=== PATIENT | female | born 1970 | race Caucasian/White ===

== ENCOUNTER → 2016-11-07 | Outpatient (CLI) | payer OTHER ==
--- NOTE | 2016-11-07 09:39 | RAD ---
Abdominal ultrasound, 11/07/2016: History: Right upper quadrant pain The gallbladder is within normal limits in size. There is no sonographic evidence of cholelithiasis. The gallbladder foster are not thickened. No bile duct dilatation is seen. The visualized portions of the liver, pancreas, spleen and both kidneys are unremarkable. The abdominal aorta and inferior vena cava are unremarkable. No free fluid is evident in the abdomen. IMPRESSION: No significant abnormality is detected.
== END | disposition home or self-care (01) ==
LOC: US 06:55
PROVIDERS: ATTEND Nurse Practitioner Women's Health
DX: R10.11 Right upper quadrant pain (principal); Z80.3 Family history of malignant neoplasm of breast
CPT/HCPCS: 76700

== ENCOUNTER → 2016-12-07 | Outpatient (CLI) | payer OTHER ==
[2016-12-07 09:02] LABS: ALBUMIN 3.7 g/dL (3.4-5.0); ALBUMIN/GLOBULIN RATIO 0.9 (1.0-1.7); CALCIUM 9.5 mg/dL (8.5-10.1); CREATININE 0.9 mg/dL (0.6-1.0); GFR 67.7; POTASSIUM 3.5 mmol/L (3.5-5.1); TOTAL BILIRUBIN 0.3 mg/dL (0.2-1.0); TOTAL PROTEIN 7.6 g/dL (6.4-8.2)
[2016-12-07 09:06] LABS: CHOLESTEROL/HDL RATIO 2.3
[2016-12-07 09:15] LABS: FREE T4 1.04 ng/dL (0.76-1.46)
== END | disposition home or self-care (01) ==
LOC: LAB 08:04
PROVIDERS: ATTEND Nurse Practitioner Women's Health
DX: I10 Essential (primary) hypertension (principal); E07.9 Disorder of thyroid, unspecified; E55.9 Vitamin D deficiency, unspecified
CPT/HCPCS: 36415; 80053; 80061; 82306; 84439; 84443

== ENCOUNTER → 2018-01-06 | Outpatient (CLI) | payer OTHER ==
[2018-01-06 15:29] LABS: ADD MAN DIFF? NO
[2018-01-06 15:33] LABS: BASO # 0.1 x10^3/uL (0.0-0.2); BASO % 1 % (0-3); EOS # 0.1 x10^3/uL (0.0-0.7); EOS % 1 % (0-3); HEMATOCRIT 32.2 % (36.0-47.0); HEMOGLOBIN 10.1 g/dL (12.0-15.5); LYMPH # 2.7 x10^3/uL (1.0-4.8); LYMPH % 40 % (24-48); MEAN CORPUSCULAR HEMOGLOBIN 23 pg (25-35); MEAN CORPUSCULAR HGB CONC 31 g/dL (31-37); MEAN CORPUSCULAR VOLUME 74 fL (79-100); MONO # 0.4 x10^3/uL (0.0-1.1); MONO % 6 % (0-9); NEUT # 3.5 x10^3uL (1.8-7.7); NEUT % 52 % (31-73); PLATELET COUNT 290 x10^3/uL (140-400); RED BLOOD COUNT 4.36 x10^6/uL (3.50-5.40); RED CELL DISTRIBUTION WIDTH 20.9 % (11.5-14.5); WHITE BLOOD COUNT 6.7 x10^3/uL (4.0-11.0)
[2018-01-06 15:52] LABS: ALK PHOS 91 U/L (46-116); ALT (SGPT) 14 U/L (14-59); ANION GAP 8 (6-14); AST (SGOT) 14 U/L (15-37); BLOOD UREA NITROGEN 16 mg/dL (7-20); BUN/CREATININE RATIO 16 (6-20); CALCIUM 9.6 mg/dL (8.5-10.1); CARBON DIOXIDE 25 mmol/L (21-32); CHLORIDE 105 mmol/L (98-107); GFR 59.7; GLUCOSE 109 mg/dL (70-99); POTASSIUM 4.3 mmol/L (3.5-5.1); SODIUM 138 mmol/L (136-145); TOTAL BILIRUBIN 0.4 mg/dL (0.2-1.0); TOTAL PROTEIN 8.2 g/dL (6.4-8.2)
[2018-01-06 16:31] LABS: ANISOCYTOSIS SLIGHT; OVALOCYTES OCC; PLT ESTIMATE ADEQUATE (ADEQUATE); POLYCHROMASIA SLIGHT
[2018-01-09 11:58] LABS: MRSA BY PCR Negative (Negative)
== END | disposition home or self-care (01) ==
LOC: SURGPAT 13:19
DX: Z01.818 Encounter for other preprocedural examination (principal); I10 Essential (primary) hypertension
CPT/HCPCS: 36415; 80053; 85025; 93005

== ENCOUNTER 2018-01-10 06:58 | Day surgery (SDC) | payer OTHER ==
[2018-01-10] MEDS ORDERED: ONDANSETRON PF 4 MG/2 ML VIAL. IV (07:00)
[2018-01-10] MEDS ORDERED: fentaNYL PF VIAL 100 MCG/2 ML VIAL IV ×2 (07:00)
[2018-01-10] MEDS ORDERED: PROCHLORPERAZINE 10 MG/2 ML VIAL. IV (07:00)
[2018-01-10] MEDS ORDERED: LIDOCAINE 1% PF 2 ML VIAL. ID (07:00)
[2018-01-10] MEDS ORDERED: MORPHINE SULFATE 2 MG/ML DISP.SYRIN. IV (07:00)
[2018-01-10] MEDS: IV RINGERS,LACTATED 1000ML 1,000 ML IV (07:36)
[2018-01-10] MEDS ORDERED: MIDAZOLAM HCL/PF 2 MG/2 ML VIAL. (08:14)
[2018-01-10] MEDS ORDERED: ROCURONIUM 50 MG/5 ML VIAL. (08:14)
[2018-01-10] MEDS ORDERED: GLYCOPYRROLATE 1 MG/5 ML VIAL. (08:14)
[2018-01-10] MEDS ORDERED: REMIFENTANIL 2 MG VIAL. IV (08:14)
[2018-01-10] MEDS ORDERED: PROPOFOL 50 ML IV ×2 (08:15→09:28)
[2018-01-10] MEDS ORDERED: DEXAMETHASONE SOD PHOS 20 MG/5 ML VIAL. (08:15)
[2018-01-10] MEDS ORDERED: PROPOFOL 20 ML IV (08:15)
[2018-01-10] MEDS ORDERED: PHENYLEPHRINE 10 MG/ML VIAL. ×2 (08:15)
[2018-01-10] MEDS ORDERED: ONDANSETRON PF 4 MG/2 ML VIAL. (08:15)
[2018-01-10] MEDS ORDERED: DESFLURANE > 120 MINUTES IH (08:15)
[2018-01-10] MEDS ORDERED: SCOPOLAMINE 1.5MG PATCH. TD (08:32)
[2018-01-10] MEDS: SCOPOLAMINE 1.5MG PATCH. TD ×2 (08:35→09:00)
[2018-01-10] MEDS ORDERED: KETOROLAC 30 MG/ML INJ FOR OR. INJ (08:57)
[2018-01-10] MEDS: VANCOMYCIN 1GM IVPB FOR OMNI 250 ML IV (09:04)
[2018-01-10] MEDS: KETOROLAC 60 MG/2 ML INJ FOR OR. (09:24)
[2018-01-10] MEDS: THROMBIN TOPICAL 20,000 UNIT SPRAY.SYRN KIT TP (09:24)
[2018-01-10] MEDS: BACITRACIN 50,000 UNIT in IV NORMAL SALINE 1000ML BAG 1,000 ML IRR (09:24)
[2018-01-10] MEDS: BUPIVAC MPF-EPI 0.5%-1:200000 30 ML VIAL. INJ (09:24)
[2018-01-10] MEDS: GELATIN SPONGE SIZE 100. (09:24)
[2018-01-10] MEDS: HYDROcodone/APAP 5/325MG 1 TAB TABLET PO (11:39)
== END 2018-01-10 12:40 | disposition home or self-care (01) ==
LOC: SURG 06:58
DX: M51.17 Intervertebral disc disorders with radiculopathy, lumbosacral region (principal)
CPT/HCPCS: 63030; 76000; 97161-GP; G8978-CJ-GP; G8979-CJ-GP; G8980-CJ-GP; J1100; J1885; J2250; J2405; J2704; J3370; J3490; J7030

== ENCOUNTER → 2018-07-11 | Day surgery (SDC) | payer OTHER ==
[~2018-07-11] MED LIST: ACET500T68 PO; ATOR20TA58 PO; BYSTOLIC5 MG PO; DOCU-109 PO; FERR325T14 PO; GABA-586 PO; GLUC100018 PO; HYDR-971 PO; HYDROmorphone 2 MG/ML VIAL IV PRN; IV RINGERS,LACTATED 1000ML 1,000 ML IV SCH; LIDOCAINE 1% PF 2 ML VIAL. ID PRN; LIDOCAINE 1% PF 2 ML VIAL. ONE; METF10007 PO; METH-38 PO; MORPHINE SULFATE 2 MG/ML VIAL. IV PRN; NAPR-514 PO; NIAC1000 PO; ONDANSETRON PF 4 MG/2 ML VIAL. IV PRN; PHEN37.5 PO; PROCHLORPERAZINE 10 MG/2 ML VIAL. IV PRN; PROPOFOL 20 ML IV ONE; THYR30TA PO; TOPI50TA8 PO; TRAM50TA PO; fentaNYL PF VIAL 100 MCG/2 ML VIAL IV PRN
[2018-07-11 08:03] VITALS: BP 119/62
== END | disposition home or self-care (01) ==
LOC: ENDOS 06:01
PROVIDERS: ATTEND Internal Medicine Gastroenterology
DX: K64.0 First degree hemorrhoids (principal); F41.9 Anxiety disorder, unspecified; K21.9 Gastro-esophageal reflux disease without esophagitis; I10 Essential (primary) hypertension; E03.9 Hypothyroidism, unspecified; E78.00 Pure hypercholesterolemia, unspecified; Z88.0 Allergy status to penicillin; Z88.1 Allergy status to other antibiotic agents; D64.9 Anemia, unspecified; M19.90 Unspecified osteoarthritis, unspecified site; Z80.3 Family history of malignant neoplasm of breast; Z83.71 Family history of colonic polyps; Z80.0 Family history of malignant neoplasm of digestive organs; Z82.49 Family history of ischemic heart disease and other diseases of the circulatory system; Z83.3 Family history of diabetes mellitus; Z79.899 Other long term (current) drug therapy; Z79.84 Long term (current) use of oral hypoglycemic drugs; Z90.710 Acquired absence of both cervix and uterus; Z98.890 Other specified postprocedural states; Z96.698 Presence of other orthopedic joint implants
CPT/HCPCS: 45378; J2704

== ENCOUNTER → 2019-04-21 | Outpatient (CLI) | payer OTHER ==
[2019-04-06 14:20] VITALS: BP 108/63
[~2019-04-21] MED LIST changes: +ALPR0.5T6 PO; +BUPR300T4 PO; +CARV6.2511 PO; -GABA-586 PO; +GABA300C18 PO; +HYDR-3164 PO; -HYDR-971 PO; -HYDROmorphone 2 MG/ML VIAL IV PRN; -IV RINGERS,LACTATED 1000ML 1,000 ML IV SCH; +LEFLUNOMIDE20 MG PO; -LIDOCAINE 1% PF 2 ML VIAL. ID PRN; -LIDOCAINE 1% PF 2 ML VIAL. ONE; +META-21 PO; -MORPHINE SULFATE 2 MG/ML VIAL. IV PRN; +OMEG1CAP38 PO; +OMEP40CA5 PO; -ONDANSETRON PF 4 MG/2 ML VIAL. IV PRN; -PROCHLORPERAZINE 10 MG/2 ML VIAL. IV PRN; -PROPOFOL 20 ML IV ONE; +TOPI25TA52 PO; -fentaNYL PF VIAL 100 MCG/2 ML VIAL IV PRN
[2019-04-21 15:06] LABS: BASO # 0.1 x10^3/uL (0.0-0.2); BASO % 1 % (0-3); EOS # 0.1 x10^3/uL (0.0-0.7); EOS % 2 % (0-3); HEMATOCRIT 34.6 % (36.0-47.0); HEMOGLOBIN 11.4 g/dL (12.0-15.5); LYMPH # 2.4 x10^3/uL (1.0-4.8); LYMPH % 39 % (24-48); MEAN CORPUSCULAR HEMOGLOBIN 28 pg (25-35); MEAN CORPUSCULAR HGB CONC 33 g/dL (31-37); MEAN CORPUSCULAR VOLUME 85 fL (79-100); MONO # 0.4 x10^3/uL (0.0-1.1); MONO % 7 % (0-9); NEUT # 3.1 x10^3/uL (1.8-7.7); NEUT % 51 % (31-73); PLATELET COUNT 256 x10^3/uL (140-400); RED BLOOD COUNT 4.08 x10^6/uL (3.50-5.40); RED CELL DISTRIBUTION WIDTH 15.7 % (11.5-14.5); WHITE BLOOD COUNT 6.2 x10^3/uL (4.0-11.0)
== END | disposition home or self-care (01) ==
LOC: LAB 14:49
PROVIDERS: ATTEND Internal Medicine Hematology & Oncology
DX: D64.9 Anemia, unspecified (principal)
CPT/HCPCS: 36415; 82607; 82728; 82746; 83540; 83550; 85025; 85045

== ENCOUNTER → 2019-05-05 | Outpatient (CLI) | payer OTHER ==
[2019-04-06 14:20] VITALS: BP 108/63
[2019-05-05 12:10] LABS: BASO # 0.1 x10^3/uL (0.0-0.2); BASO % 1 % (0-3); EOS # 0.1 x10^3/uL (0.0-0.7); EOS % 2 % (0-3); HEMATOCRIT 33.7 % (36.0-47.0); HEMOGLOBIN 11.2 g/dL (12.0-15.5); LYMPH % 28 % (24-48); MEAN CORPUSCULAR HEMOGLOBIN 28 pg (25-35); MEAN CORPUSCULAR HGB CONC 33 g/dL (31-37); MEAN CORPUSCULAR VOLUME 85 fL (79-100); MONO # 0.5 x10^3/uL (0.0-1.1); MONO % 7 % (0-9); NEUT # 4.3 x10^3/uL (1.8-7.7); NEUT % 62 % (31-73); PLATELET COUNT 241 x10^3/uL (140-400); RED BLOOD COUNT 3.95 x10^6/uL (3.50-5.40); RED CELL DISTRIBUTION WIDTH 15.1 % (11.5-14.5); WHITE BLOOD COUNT 6.9 x10^3/uL (4.0-11.0)
[2019-05-05 12:35] LABS: ALBUMIN 3.5 g/dL (3.4-5.0); ALBUMIN/GLOBULIN RATIO 0.8 (1.0-1.7); GFR 48.2; POTASSIUM 4.1 mmol/L (3.5-5.1); SODIUM 141 mmol/L (136-145); TOTAL BILIRUBIN 0.5 mg/dL (0.2-1.0); TOTAL PROTEIN 7.7 g/dL (6.4-8.2)
--- NOTE | 2019-05-05 12:43 | RAD ---
EXAM: Right shoulder, 3 views; cervical spine, 2 views. HISTORY: Pain. COMPARISON: None. FINDINGS: Right shoulder: 3 views of the right shoulder obtained. There is no fracture, dislocation or subluxation. Cervical spine: 2 views of the cervical spine are obtained. There is degenerative endplate remodeling with disc space narrowing at C5-C6, and to lesser extent, C6-C7. No fracture is seen. There is no significant listhesis. IMPRESSION: 1. Degenerative change involving the cervical spine, primarily at C5-C6 and C6-C7. 2. No acute osseous finding. Electronically signed by: Hellen Barber MD (05/05/2019 12:40 PM) [email or web address]
[2019-05-05 12:48] LABS: ALK PHOS 91 U/L (46-116); ALT (SGPT) 7 U/L (14-59); ANION GAP 10 (6-14); AST (SGOT) 11 U/L (15-37); BLOOD UREA NITROGEN 24 mg/dL (7-20); BUN/CREATININE RATIO 20 (6-20); CARBON DIOXIDE 24 mmol/L (21-32); CHLORIDE 107 mmol/L (98-107); CREATININE 1.2 mg/dL (0.6-1.0); GLUCOSE 90 mg/dL (70-99)
[2019-05-05 12:52] LABS: C-REACTIVE PROTEIN < 0.5 mg/L (0-3.3)
== END | disposition home or self-care (01) ==
LOC: RAD 11:47
PROVIDERS: ATTEND Internal Medicine Rheumatology
DX: M47.812 Spondylosis without myelopathy or radiculopathy, cervical region (principal); M48.02 Spinal stenosis, cervical region; M06.9 Rheumatoid arthritis, unspecified; M25.511 Pain in right shoulder; Z79.899 Other long term (current) drug therapy
CPT/HCPCS: 36415; 72040; 73030; 80053; 85025; 85651; 86140

== ENCOUNTER → 2019-05-26 | Day surgery (SDC) | payer OTHER ==
[~2019-05-26] MED LIST changes: +IV RINGERS,LACTATED 1000ML 1,000 ML IV SCH; +LEFL10TA13 PO; -LEFLUNOMIDE20 MG PO; +LIDOCAINE 2% PF 5 ML VIAL. ONE; +PROPOFOL 20 ML IV ONE
[2019-05-26 16:31] VITALS: BP 113/64
== END | disposition home or self-care (01) ==
LOC: ENDOS 14:47
PROVIDERS: ATTEND Internal Medicine Gastroenterology
DX: K29.50 Unspecified chronic gastritis without bleeding (principal); D50.9 Iron deficiency anemia, unspecified; K31.89 Other diseases of stomach and duodenum; K21.9 Gastro-esophageal reflux disease without esophagitis; I10 Essential (primary) hypertension; E78.5 Hyperlipidemia, unspecified; F41.9 Anxiety disorder, unspecified; M19.90 Unspecified osteoarthritis, unspecified site; E78.00 Pure hypercholesterolemia, unspecified; Z80.3 Family history of malignant neoplasm of breast; Z83.3 Family history of diabetes mellitus; Z90.710 Acquired absence of both cervix and uterus; Z88.0 Allergy status to penicillin; Z88.8 Allergy status to other drugs, medicaments and biological substances; Z83.71 Family history of colonic polyps; Z80.0 Family history of malignant neoplasm of digestive organs; Z79.84 Long term (current) use of oral hypoglycemic drugs; Z79.899 Other long term (current) drug therapy
CPT/HCPCS: 43235; J2001; J2704

== ENCOUNTER → 2019-06-09 | Outpatient (CLI) | payer OTHER ==
[2019-05-26 16:31] VITALS: BP 113/64
[~2019-06-09] MED LIST changes: +BARIUM SULFATE 60% 355 ML SUSP PO ONE; -IV RINGERS,LACTATED 1000ML 1,000 ML IV SCH; -LIDOCAINE 2% PF 5 ML VIAL. ONE; -PROPOFOL 20 ML IV ONE
--- NOTE | 2019-06-09 16:26 | RAD ---
Examination: SMALL BOWEL SERIES History: Anemia Comparison/Correlation: None Findings: Small bowel series exam was performed utilizing 0.6 minutes of fluoroscopy. 8 fluoroscopic images were obtained. Hemmer Chainstitch view demonstrates left hip joint prosthesis. Bowel gas pattern is unremarkable. Oral contrast was administered. Stomach distends normally with contrast. Contrast reaches the cecum by 40 minutes. No suspicious filling defects identified. Terminal ileum is grossly unremarkable. No strictures identified. Impression: Normal small bowel series exam. Electronically signed by: Jay Ballard MD (06/09/2019 4:23 PM) [facility]
== END | disposition home or self-care (01) ==
LOC: RAD 07:48
PROVIDERS: ATTEND Internal Medicine Gastroenterology
DX: D64.9 Anemia, unspecified (principal)
CPT/HCPCS: 74250

== ENCOUNTER → 2019-06-17 | Outpatient (CLI) | payer OTHER ==
[2019-05-26 16:31] VITALS: BP 113/64
[~2019-06-17] MED LIST changes: -BARIUM SULFATE 60% 355 ML SUSP PO ONE; +OMEP40CA45 PO; -OMEP40CA5 PO
[2019-06-17 17:05] LABS: BASO # 0.1 x10^3/uL (0.0-0.2); BASO % 1 % (0-3); EOS # 0.1 x10^3/uL (0.0-0.7); EOS % 2 % (0-3); HEMATOCRIT 36.3 % (36.0-47.0); HEMOGLOBIN 11.9 g/dL (12.0-15.5); LYMPH # 2.5 x10^3/uL (1.0-4.8); LYMPH % 36 % (24-48); MEAN CORPUSCULAR HEMOGLOBIN 30 pg (25-35); MEAN CORPUSCULAR HGB CONC 33 g/dL (31-37); MEAN CORPUSCULAR VOLUME 90 fL (79-100); MONO # 0.6 x10^3/uL (0.0-1.1); MONO % 9 % (0-9); NEUT # 3.7 x10^3/uL (1.8-7.7); NEUT % 53 % (31-73); PLATELET COUNT 227 x10^3/uL (140-400); RED BLOOD COUNT 4.02 x10^6/uL (3.50-5.40); RED CELL DISTRIBUTION WIDTH 15.4 % (11.5-14.5); WHITE BLOOD COUNT 7.1 x10^3/uL (4.0-11.0)
== END | disposition home or self-care (01) ==
LOC: LAB 16:47
PROVIDERS: ATTEND Internal Medicine Gastroenterology
DX: D64.9 Anemia, unspecified (principal)
CPT/HCPCS: 36415; 85025

== ENCOUNTER → 2019-09-23 | Outpatient (CLI) | payer OTHER ==
[2019-05-26 16:31] VITALS: BP 113/64
[~2019-09-23] MED LIST changes: -BUPR300T4 PO; +BUPR300T92 PO
[2019-09-23 17:11] LABS: BASO # 0.1 x10^3/uL (0.0-0.2); BASO % 1 % (0-3); EOS # 0.2 x10^3/uL (0.0-0.7); EOS % 3 % (0-3); HEMATOCRIT 37.9 % (36.0-47.0); HEMOGLOBIN 12.5 g/dL (12.0-15.5); LYMPH # 2.5 x10^3/uL (1.0-4.8); LYMPH % 45 % (24-48); MEAN CORPUSCULAR HEMOGLOBIN 30 pg (25-35); MEAN CORPUSCULAR HGB CONC 33 g/dL (31-37); MEAN CORPUSCULAR VOLUME 91 fL (79-100); MONO # 0.4 x10^3/uL (0.0-1.1); MONO % 8 % (0-9); NEUT # 2.4 x10^3/uL (1.8-7.7); NEUT % 43 % (31-73); PLATELET COUNT 237 x10^3/uL (140-400); RED BLOOD COUNT 4.16 x10^6/uL (3.50-5.40); RED CELL DISTRIBUTION WIDTH 13.2 % (11.5-14.5); WHITE BLOOD COUNT 5.5 x10^3/uL (4.0-11.0)
== END | disposition home or self-care (01) ==
LOC: LAB 16:49
PROVIDERS: ATTEND Internal Medicine Hematology & Oncology
DX: D50.9 Iron deficiency anemia, unspecified (principal)
CPT/HCPCS: 36415; 82607; 82728; 82746; 83540; 83550; 85025

== ENCOUNTER → 2021-01-26 | Outpatient (CLI) | payer OTHER ==
[2019-05-26 16:31] VITALS: BP 113/64
--- NOTE | 2021-01-26 09:29 | KCIC ---
MRI STUDY OF THE RIGHT KNEE WITHOUT CONTRAST INDICATIONS: Right knee pain. History of right knee pain after hearing and feeling a pop posteriorly in December 2020. TECHNIQUE: Noncontrast MRI sequences of the right knee were performed. FINDINGS: The anterior and posterior cruciate ligaments are intact. The quadriceps and patellar tendo ns are intact. There is an oblique tear of the posterior horn of the medial meniscus which extends to the superior and inferior articular surfaces. The resultant defect measures 3 mm transversely. No ar ticular surface tear of the lateral meniscus is seen. There is articular cartilage signal change of t he medial and lateral tibiofemoral joint compartments consistent with mild chondromalacia but no sign ificant articular cartilage defect is seen. There is mild degenerative spurring of the medial tibiofe moral joint compartment and mild to moderate degenerative spurring of the lateral tibiofemoral joint compartment. The patella is normally aligned. There is severe chondromalacia patellae and trochlear c hondromalacia with complete loss of articular cartilage of the lateral patellofemoral joint compartme nt resulting in [id number] interface here. There is moderate degenerative spurring of this joint co mpartment. The medial and lateral retinacular ligaments are intact. The medial collateral ligament is intact. There is edema around this ligament. No meniscocapsular separation is seen. The lateral shu ateral ligament complex and iliotibial band and popliteus tendon are intact. No posterior lateral cor ner injury is seen. There is a periarticular ganglion cyst seen just superior to the posterior joint capsule posterior to the distal femoral metaphysis which measures 16 mm. There is a complex ganglion cyst seen along the posterior edge of the popliteus muscle extending medially towards the pes anserin us bursa. There is a degenerative cyst below the tibial spines. There is a degenerative cyst involvin g the posterior lateral aspect of the medial tibial plateau and small degenerative cyst of the anteri or aspect of the medial tibial plateau. No marrow infiltrative process or fracture or stress reaction bone marrow edema is seen. There is a small knee joint effusion. No loose body is evident. No disten ded Lozano's cyst is evident. No muscle edema is seen. IMPRESSION: Tear of the posterior horn of the medial meniscus. Severe chondromalacia patellae and trochlear chondromalacia with [id number] interface involving the lateral patellofemoral joint compartment. Mild primary degenerative osteoarthritis and mild chondromalacia of the medial and lateral tibiofemor al joint compartments without significant articular cartilage defect. Edema around the medial collateral ligament which may represent a grade 1 ligament sprain if there is a history of recent trauma. Otherwise, this finding may represent edema due to chronic overuse/enthe sopathy. Periarticular ganglion cysts. Electronically signed by: Jj Molina MD (01/26/2021 9:26 AM) [id number]
== END ==
LOC: KCIC MRI 08:00
PROVIDERS: ATTEND Physician Assistant
DX: S83.241A Other tear of medial meniscus, current injury, right knee, initial encounter (principal); M17.11 Unilateral primary osteoarthritis, right knee; X58.XXXA Exposure to other specified factors, initial encounter; Y93.89 Activity, other specified; Y92.89 Other specified places as the place of occurrence of the external cause; Y99.8 Other external cause status
CPT/HCPCS: 73721

== ENCOUNTER 2021-02-21 10:27 | Day surgery (SDC) | payer OTHER ==
[~2021-02-21] VITALS: Ht 165.1 cm; Wt 106.0 kg
[2021-02-21 10:20] VITALS: BP 140/67
[~2021-02-21 10:27] MED LIST changes: +BUPR150T27 PO; +CLINDAMYCIN 900MG PREMIX 50 ML IV PRN; +HYDROmorphone 2 MG/ML VIAL IVP PRN; +IV RINGERS,LACTATED 1000ML 1,000 ML IV SCH; +MORPHINE SULFATE 2 MG/ML VIAL. IVP PRN; -OMEP40CA45 PO; +OMEP40CA7 PO; +PROCHLORPERAZINE 10 MG/2 ML VIAL. IVP PRN; +fentaNYL PF VIAL 100 MCG/2 ML VIAL IVP PRN
[2021-02-21] MEDS ORDERED: PROPOFOL 10 MG/ML (20ML) VIAL. IV ONE (10:44)
[2021-02-21] MEDS ORDERED: DEXAMETHASONE SOD PHOS 4 MG/ML VIAL ONE (10:44)
[2021-02-21] MEDS ORDERED: LIDOCAINE 2% PF 5 ML VIAL. ONE (10:44)
[2021-02-21] MEDS ORDERED: ONDANSETRON PF 4 MG/2 ML VIAL. ONE (10:44)
[2021-02-21] MEDS ORDERED: SCOPOLAMINE 1.5MG PATCH. TD ONE (10:45)
[2021-02-21] MEDS ORDERED: INSULIN LISPRO 100 UNIT/ML 3ML VIAL for OP,RR ONLY. SQ PRN (10:45)
[2021-02-21] MEDS ORDERED: BUPIVACAINE-EPI 0.5%-1:200000 MPF 30 ML VIAL. ONE (12:06)
[2021-02-21] MEDS ORDERED: MIDAZOLAM HCL/PF 2 MG/2 ML VIAL. ONE (13:20)
[2021-02-21] MEDS ORDERED: fentaNYL PF VIAL 100 MCG/2 ML VIAL ONE ×2 (13:20→14:29)
[2021-02-21] MEDS ORDERED: HYDR-2765 PO (14:16)
--- NOTE | 2021-02-21 14:17 | DISCH ---
DISCHARGE INSTRUCTIONS Condition on Discharge Condition on Discharge: Stable Activity After Discharge Activity Instructions for Disc: Activity as tolerated Lifting Instructions after Dis: No heavy lifting, No pulling or pushing Weight Bearing Status after Di: As tolerated Diet after Discharge Diet after Discharge: Cardiac Additional Diet Restrictions: resume home diet Diet Texture: Regular Liquid Texture: Thin Liquid Swallowing Supervision: None needed Wound Incision Care Wound/Incision Care: Ice to area for comfort, Change dressing (Remove dressing in 2 days may then shower no soaking until sutures removed) Contacting the DRJerri after DC Call your doctor for: Concerns you may have Follow-Up Follow up with: Dr. Donahue or Aliya 7 to 10 days JOI DONAHUE MD Feb 21, 2021 14:17
[2021-02-21] MEDS ORDERED: HYDROcodone/APAP 7.5/325MG 1 TAB TABLET PO ONE (14:45)
[2021-02-21 14:50] VITALS: BP 113/59
--- NOTE | 2021-02-21 19:19 | PDOC4 ---
Operative Note Operative Note Date of surgery: 02/21/2021 Preoperative diagnosis: Medial meniscus tear Postoperative diagnosis: Same plus medial meniscus tear Operative procedure: Right knee arthroscopy with debridement Surgeon: Godfrey Weed Thinner Abelino Hinton assistant boys track coach Anesthesia: General Estimated blood loss: 5 cc Complications: None Operative indications: Please see my orthopedic clinic note for detailed operative indications and note that we discussed that her symptoms appeared consistent with MRI findings of a meniscus tear and she was having significant limitations with her activities due to pain after activity as well as sharp stabbing pain with activity we had discussed treatment with removal of the damaged part of the meniscus the fact I cannot undo any degenerative changes in the knee possibility of infection nerve or blood vessel damage blood clot medical or other anesthetic complications among others all his questions were answered she wishes to proceed with surgical evaluation and treatment. Operative text: Patient was identified procedure verified patient placed in the supine position on the operating table. After adequate amounts of general anesthesia were administered the right lower extremity was prepped and draped in standard sterile fashion with a thigh tourniquet. After timeout was performed patient procedure identified and verified the right lower extremity was exsanguinated by Esmarch bandage tourniquet inflated to 300 mmHg a lateral portal established medial portal established using spinal needle localization and the knee joint was systematically examined. Patellofemoral tracking was noted to be good but [id number] degenerative change was noted at the majority of the patellofemoral joint the medial meniscus was probed and not found to have a surfacing tear. She did have extensive formation of crystalline type deposit perhaps consistent with pseudogout and she did have a small medial femoral condyle chondral flap tear which was debrided back to stable tissue using the arthroscopic shaver. ACL was probed and found to be intact. She had some mild free edge fraying at the body area of the lateral meniscus which was addressed with the arthroscopic shaver with minimal debridement. She did not have any loose bodies in the knee but again extensive crystalline type deposit in the lateral compartment and throughout the synovium as well. Synovium appeared to be irritated and the infolding of the synovial plica and fat pad were debrided to prevent any rubbing on the femoral condyles or impingement. The knee was again evaluated to ensure no loose bodies were present. The knee was evacuated of arthroscopic fluid portals and fat pad area were injected with a total of 30 cc of half percent plain Marcaine portals were closed with nylon suture sterile dressings were applied toes were noted to be warm pink following deflation of the tourniquet patient was returned to recovery room in stable condition having tolerated procedure well. Abelino cai assist was present for the procedure assisted in patient positioning prepping draping surgical limb positioning closure and dressings JOI OJEDA MD Feb 21, 2021 19:19
== END 2021-02-21 15:32 | disposition home or self-care (01) ==
LOC: SURG 10:27
PROVIDERS: ATTEND Orthopaedic Surgery
DX: S83.241A Other tear of medial meniscus, current injury, right knee, initial encounter (principal); I10 Essential (primary) hypertension; E78.00 Pure hypercholesterolemia, unspecified; E03.9 Hypothyroidism, unspecified; K21.9 Gastro-esophageal reflux disease without esophagitis; M19.90 Unspecified osteoarthritis, unspecified site; F41.9 Anxiety disorder, unspecified; Z90.710 Acquired absence of both cervix and uterus; Z98.890 Other specified postprocedural states; Z79.899 Other long term (current) drug therapy; Z79.84 Long term (current) use of oral hypoglycemic drugs; Z72.89 Other problems related to lifestyle; Z88.0 Allergy status to penicillin; Z88.1 Allergy status to other antibiotic agents; X58.XXXA Exposure to other specified factors, initial encounter; Y93.89 Activity, other specified; Y92.89 Other specified places as the place of occurrence of the external cause; Y99.8 Other external cause status
CPT/HCPCS: 29881; 82962; A4930; J1100; J2250; J2405; J2704; J3010; J3490